=== PATIENT | male | born 2000 | race African-American/Black ===

== ENCOUNTER 2023-12-14 22:29 | Emergency (ER) | payer SELFPAY ==
[~2023-12-14] VITALS: Ht 177.8 cm; Wt 73.5 kg
[2023-12-14] MEDS: IBUPROFEN 600 MG TABLET PO ONE (23:13)
[2023-12-14] MEDS ORDERED: IBUPROFEN 600 MG TABLET ONE (23:13)
[2023-12-14 23:47] VITALS: BP 142/80; TEMP 97.8; O2SAT 100
== END 2023-12-14 23:49 | disposition home or self-care (01) ==
LOC: ER 22:35
DX: M25.572 Pain in left ankle and joints of left foot (principal)
CPT/HCPCS: 73610-TC; 73630-TC